=== PATIENT | female | born 1935 | race Caucasian/White ===

== ENCOUNTER 2016-07-27 14:36 | Outpatient (CLI) | payer MEDICARE ==
[2016-07-27 15:27] LABS: ALT (SGPT) 15 U/L (0-55); AST (SGOT) 22 U/L (5-34); Albumin 4.3 g/dL (3.4-4.8); Alkaline Phosphatase 78 U/L (40-150); Bilirubin, Direct 0.2 mg/dL (0.1-0.3); Bilirubin, Total 0.5 mg/dL (0.2-1.2); Cardiac Risk 2.6 (Less than 4.5); Cholesterol 176 mg/dL (< 200 Desired); HDL Cholesterol 68 mg/dL (>60 Neg Risk); LDL Cholesterol, Calculated 97 mg/dL; Protein, Total 6.7 g/dL (5.8-8.1); Triglycerides 55 mg/dL (Less than 150)
== END 2016-07-27 14:37 | disposition home or self-care (01) ==
LOC: NAVSJIPCSP 14:36
PROVIDERS: ATTEND Specialist
DX: E78.4 Other hyperlipidemia (principal); I25.10 Atherosclerotic heart disease of native coronary artery without angina pectoris
CPT/HCPCS: 36415; 80061; 80076

== ENCOUNTER 2016-11-01 12:04 | Outpatient (CLI) | payer MEDICARE ==
[2016-11-01 13:04] LABS: ALT (SGPT) 16 U/L (8-55); AST (SGOT) 21 U/L (5-34); Albumin 4.5 g/dL (3.4-4.8); Alkaline Phosphatase 92 U/L (40-150); Anion Gap 16 mmol/L (10-20); BUN (Urea Nitrogen) 21 mg/dL (9.8-20.1); Bilirubin, Direct 0.3 mg/dL (0.1-0.3); Bilirubin, Total 0.5 mg/dL (0.2-1.2); Calc. Creatinine Clearance 0 mL/min (70-130); Calcium 9.9 mg/dL (7.8-10.44); Carbon Dioxide 25 mmol/L (23-31); Cardiac Risk 2.4 (Less than 4.5); Chloride 105 mmol/L (98-107); Cholesterol 177 mg/dl (< 200 Desired); Estimated GFR-MDRD 52; Glucose 96 mg/dL (83-110); HDL Cholesterol 73 mg/dL (>60 Neg Risk); LDL Cholesterol, Calculated 95 mg/dL; Protein, Total 7.1 g/dL (6.0-8.3); Sodium 141 mmol/L (136-145); Triglycerides 47 mg/dL (Less than 150)
[2016-11-01 13:40] LABS: #Basophils 0.1 thou/uL (0.0-0.2); #Eosinphils 0.2 thou/uL (0.0-0.7); #Lymphocytes 2.4 thou/uL (1.20-3.40); #Monocytes 0.7 thou/uL (0.11-0.59); #Neutrophils 3.9 thou/uL (1.40-6.50); %Eosinophils 2.3 % (0.0-10.0); %Lymphocytes 33.4 % (21.0-51.0); %Monocytes 9.4 % (0.0-10.0); %Neutrophils 53.9 % (42.0-75.0); Hemoglobin 13.7 g/dL (12.0-16.0); Mean Corpuscular HGB CONC 32.4 g/dL (32.0-36.0); Mean Corpuscular Hemoglobin 29.8 pg (27.0-31.0); Mean Platelet Volume 6.9 fL (7.4-10.4); Platelet Count 175 thou/uL (130-400); RBC Distribution Width 12.2 % (11.5-14.5); Red Blood Cell (RBC) Count 4.59 mill/uL (4.20-5.40); White Blood Cell (WBC) Count 7.3 thou/uL (4.8-10.8)
[2016-11-01 16:26] LABS: Hemoglobin A1c 5.7 % (4.0-6.0)
== END 2016-11-01 12:05 | disposition home or self-care (01) ==
LOC: NAVSJIPCSP 12:04
PROVIDERS: ATTEND Nurse Practitioner Family
DX: Z00.00 Encounter for general adult medical examination without abnormal findings (principal); E03.9 Hypothyroidism, unspecified; E78.5 Hyperlipidemia, unspecified; I10 Essential (primary) hypertension; Z79.899 Other long term (current) drug therapy
CPT/HCPCS: 36415; 80048; 80061; 80076; 83036; 84443; 85025

== ENCOUNTER 2017-06-30 15:04 | Outpatient (CLI) | payer MEDICARE ==
--- NOTE | 2017-06-30 16:11 | ULT ---
BILATERAL CAROTID DUPLEX ULTRASOUND INCLUDING COLOR AND SPECTRAL DOPPLER IMAGING: HISTORY: An 82-year-old female with carotid bruit. COMPARISON: 04/19/13. FINDINGS: There is some visual plaque noted in both proximal ICAs worse on the left side. PSV right ICA 92 cm/s, EDV 17 cm/s. ICA/CCA ratio 0.86. PSV left ICA 78 cm/s, EDV 11 cm/s. ICA/CCA ratio 0.8. Vertebral flow is antegrade. IMPRESSION: Mild visual plaque bilaterally, evidence for carotid artery atherosclerotic disease. No hemodynamica lly significant stenosis. POS: OFF
== END 2017-06-30 15:05 | disposition home or self-care (01) ==
LOC: NAV ULT 15:04
PROVIDERS: ATTEND Family Medicine
DX: R09.89 Other specified symptoms and signs involving the circulatory and respiratory systems (principal); I65.23 Occlusion and stenosis of bilateral carotid arteries
CPT/HCPCS: 93880

== ENCOUNTER 2017-11-30 02:14 | Emergency (ER) | payer MEDICARE ==
[2017-11-30 02:48] LABS: #Basophils 0.1 thou/uL (0.0-0.2); #Eosinphils 0.3 thou/uL (0.0-0.7); #Monocytes 0.8 thou/uL (0.11-0.59); %Basophils 0.8 % (0.0-1.0); %Eosinophils 3.5 % (0.0-10.0); %Lymphocytes 37.1 % (21.0-51.0); %Monocytes 9.4 % (0.0-10.0); %Neutrophils 49.2 % (42.0-75.0); Hemoglobin 12.7 g/dL (12.0-16.0); Mean Corpuscular HGB CONC 32.9 g/dL (32.0-36.0); Mean Corpuscular Hemoglobin 28.9 pg (27.0-31.0); Mean Corpuscular Volume 87.9 fL (78.0-98.0); Mean Platelet Volume 6.9 fL (7.4-10.4); Platelet Count 159 thou/uL (130-400); Red Blood Cell (RBC) Count 4.41 mill/uL (4.20-5.40); White Blood Cell (WBC) Count 8.1 thou/uL (4.8-10.8)
[2017-11-30 02:52] LABS: MDiff Complete? YES; Manual Diff?? NO
[2017-11-30 03:04] LABS: CKMB 1.4 ng/mL (0-6.6); Troponin I Less than 0.010 ng/mL (< 0.028)
[2017-11-30 03:05] LABS: ALT (SGPT) 17 U/L (8-55); AST (SGOT) 23 U/L (5-34); Albumin 4.1 g/dL (3.4-4.8); Alkaline Phosphatase 99 U/L (40-150); Anion Gap 14 mmol/L (10-20); BUN (Urea Nitrogen) 16 mg/dL (9.8-20.1); Bilirubin, Total 0.5 mg/dL (0.2-1.2); CK (CPK) 114 U/L (29-168); Calc. Creatinine Clearance 0 mL/min (70-130); Calcium 9.7 mg/dL (7.8-10.44); Carbon Dioxide 23 mmol/L (23-31); Chloride 109 mmol/L (98-107); Estimated GFR-MDRD 56; Globulin 2.6 g/dL (2.4-3.5); Glucose 96 mg/dL (83-110); Potassium 3.4 mmol/L (3.5-5.1); Protein, Total 6.7 g/dL (6.0-8.3); Sodium 143 mmol/L (136-145)
--- NOTE | 2017-11-30 08:15 | RAD ---
FRONTAL VIEW CHEST: COMPARISON: 02/11/10. INDICATION: Chest pain. FINDINGS: Granulomatous calcification is seen overlying the right lower chest. There is evidence of prior ster notomy. Cardiac silhouette is within normal limits of size for portable semiupright technique. Ther e is no significant effusion or discrete pneumothorax. There is biapical pleural thickening. IMPRESSION: No focal consolidation. POS: [facility]
== END 2017-11-30 03:55 | disposition home or self-care (01) ==
LOC: NAV ERS 02:14
DX: I49.1 Atrial premature depolarization (principal); I10 Essential (primary) hypertension
CPT/HCPCS: 36415; 71045; 80053; 82550; 82553; 84484; 85025; 93005; 94760

== ENCOUNTER 2020-02-22 09:42 | Emergency (ER) | payer MEDICARE, OTHER ==
--- NOTE | 2020-02-22 11:01 | RAD ---
XR Ribs Lt>=2 View W/PA CXR History: Pain Comparison: Chest radiograph August 2018 Findings: Multiple midline sternotomy wires. Mild background lung hyperinflation. No acute displaced rib fracture. Calcified granuloma right lung base. Mild scarring left lung base. Old compression deformities upper lumbar spine. Impression: No acute displaced left rib fracture.
[2020-02-22 11:24] LABS: Bilirubin Negative (Negative); Blood, Urine Trace (Negative); Clarity Clear (Clear); Glucose, Urine (Dipstick) Negative (Negative); Ketone, Urine Negative (Negative); Leukocyte Negative (Negative); Nitrite Negative (Negative); Protein, Urine (Dipstick) Negative (Neg-Trace); Urobilinogen 0.2 mg/dL (Less than 2)
[2020-02-22 11:38] LABS: Bacteria/HPF Rare-Few HPF (None Seen); RBC/HPF 0-3 HPF (0-3); Squamous Epithelial None Seen HPF (0-3); WBC/HPF 0-3 HPF (0-3)
== END 2020-02-22 11:35 | disposition home or self-care (01) ==
LOC: NAV ERS 09:42
DX: R07.89 Other chest pain (principal); I10 Essential (primary) hypertension; Z79.899 Other long term (current) drug therapy
CPT/HCPCS: 81003; 81015; 93005

== ENCOUNTER 2021-02-23 10:57 | Emergency (ER) | payer MEDICARE, OTHER ==
[2021-02-23 11:49] LABS: Bilirubin Small (Negative); Blood, Urine Small (Negative); Clarity Clear (Clear); Glucose, Urine (Dipstick) Negative (Negative); Ketone, Urine Trace mg/dL (Negative); Leukocyte Negative (Negative); Nitrite Negative (Negative); Protein, Urine (Dipstick) Negative (Neg-Trace); Urobilinogen 0.2 mg/dL (Less than 2); pH, Urine 5.5 (5.0-9.0)
[2021-02-23 11:55] LABS: Bacteria/HPF Rare-Few HPF (None Seen)
== END 2021-02-23 12:30 | disposition home or self-care (01) ==
LOC: NAV ERS 10:57
DX: N39.0 Urinary tract infection, site not specified (principal); Z79.899 Other long term (current) drug therapy; Z79.82 Long term (current) use of aspirin; E78.5 Hyperlipidemia, unspecified; E78.00 Pure hypercholesterolemia, unspecified; E78.1 Pure hyperglyceridemia; I10 Essential (primary) hypertension
CPT/HCPCS: 81003; 81015; 87086; 99283